=== PATIENT | female | born 1995 | race Caucasian/White ===

== ENCOUNTER → 2019-06-11 | Outpatient (CLI) | payer OTHER ==
--- NOTE | 2019-06-12 04:47 | MR ---
EXAMINATION TYPE: MR lumbar spine wo con DATE OF EXAM: 06/11/2019 COMPARISON: None HISTORY: 24-year-old female Radiculopathy lumbar region, pain x 5 years TECHNIQUE: Multiplanar, multisequence images of the lumbar spine were acquired. FINDINGS: Vertebral body heights are preserved and alignment is maintained. Intervertebral disc hydration and heights are maintained though minimal bulging is noted particularly at L3-L4 and L4-L5. No large focal disc herniation or spinal canal stenosis. Mild facet degenerative change at L4-L5 particularly on the right. Minimal inferior foraminal narrowi ng on both sides at L4-L5. Otherwise, no significant neural foraminal stenosis. Conus medullaris is normal. No suspicious bone marrow replacement. No prevertebral or paravertebral soft tissue abnormality. IMPRESSION: Very minimal disc bulging at L3-L4 and L4-L5. Along with mild facet degenerative change at L4-L5, the re is minimal inferior foraminal narrowing on both sides at this level. No focal disc herniation or s ignificant spinal canal or neural foraminal stenosis seen.
== END | disposition home or self-care (01) ==
LOC: RADMRIMAIN 06:58
PROVIDERS: ATTEND Family Medicine
DX: M47.816 Spondylosis without myelopathy or radiculopathy, lumbar region (principal)
CPT/HCPCS: 72148